=== PATIENT | male | born 1970 | race Caucasian/White ===

== ENCOUNTER → 2025-01-20 12:05 | Outpatient (CLI) | payer OTHER, SELFPAY ==
--- NOTE | 2025-01-20 12:07 | DI.CT.S_ITS ---
PROCEDURE: CT CHEST WO CON INDICATIONS: Chronic cough TECHNIQUE: Noncontrast 5 mm thick sections acquired from the pulmonary apices to the posterior costophrenic angles. 1 mm lung window, 5 mm thick coronal and sagittal and 7 mm axial MIP reformats were then acquired. For radiation dose reduction, the following was used: automated exposure control, adjustment of mA and/or kV according to patient size. COMPARISON: None. FINDINGS: Image quality: Diagnostic. Lower Neck: No enlarged lymph nodes. Thyroid: No thyroid nodules which require sonographic follow up, per consensus guidelines. Axillae: No enlarged lymph nodes. Chest Wall: Unremarkable. Bones: Unremarkable. Lungs and Pleura: No pneumothorax or pleural effusions. Noncalcified 2 millimeters solid nodule in the right lower lobe (series 3, image 301). Benign calcified granuloma there are also present. No bronchial thickening. Heart: Heart size is normal. No pericardial effusion. Thoracic Vessels: The aorta and pulmonary arteries demonstrate normal size. Mediastinum and Erin: No enlarged lymph nodes. Esophagus: No wall thickening. No hiatal hernia. Upper Abdomen: Visualized upper abdomen solid organs and bowel loops appear normal. IMPRESSION: 2 millimeter solid nodule in the right lower lobe. Pulmonary micronodules. Consider 12 month follow-up if at high risk for developing lung cancer, per Fleischner Society guidelines. No findings to explain the patient's chronic cough. No significant airways disease. Dictated by: Reggie Coello M.D. on 01/20/2025 at 13:51 Approved by: Reggie Coello M.D. on 01/20/2025 at 13:54
== END ==
LOC: CT 12:07
PROVIDERS: PCP Family Medicine; Referring Provider Family Medicine; Visit Provider Family Medicine
DX: R05.3 Chronic cough (principal); R93.89 Abnormal findings on diagnostic imaging of other specified body structures; R91.1 Solitary pulmonary nodule
CPT/HCPCS: 71250

== ENCOUNTER → 2025-05-19 07:43 | Outpatient (CLI) | payer OTHER, SELFPAY ==
--- NOTE | 2025-05-19 07:44 | DI.CT.S_ITS ---
PROCEDURE: CT CHEST W CON INDICATIONS: mass, swelling TECHNIQUE: After the administration of intravenous contrast, 5 mm thick sections acquired from the pulmonary apices to the posterior costophrenic angles. 1 mm axial lung, 5 mm thick coronal and sagittal reformats and 7 mm axial MIP were acquired. For radiation dose reduction, the following was used: automated exposure control, adjustment of mA and/or kV according to patient size. COMPARISON: [facility], CT, CT CHEST WO CON, 01/20/2025, 12:09. FINDINGS: Image quality: Diagnostic. Lower Neck: No enlarged lymph nodes. Thyroid: No thyroid nodules which require sonographic follow up, per consensus guidelines. Axillae: No enlarged lymph nodes. Chest Wall: Unremarkable. No evidence of left infraclavicular chest wall abnormality as queried. Bones: Unremarkable. Lungs and Pleura: No pneumothorax or pleural effusions. No consolidation or suspicious nodules. Stable 5 mm solid pulmonary nodule in the left lower lobe (3/208). Heart: Heart size is normal. No pericardial effusion. Thoracic Vessels: The aorta and pulmonary arteries demonstrate normal size. Mediastinum and Erin: No enlarged lymph nodes. Esophagus: No wall thickening. No hiatal hernia. Upper Abdomen: Visualized upper abdomen solid organs and bowel loops appear normal. IMPRESSION: 1. No acute intrathoracic abnormality. 2. No evidence of left infraclavicular chest wall abnormality as queried. Dictated by: Samra Richard M.D. on 05/21/2025 at 12:31 Approved by: Samra Richard M.D. on 05/21/2025 at 12:39
== END ==
LOC: CT 07:44
PROVIDERS: PCP Family Medicine; Referring Provider Family Medicine; Visit Provider Family Medicine
DX: R22.2 Localized swelling, mass and lump, trunk (principal); R91.1 Solitary pulmonary nodule
CPT/HCPCS: 71260; Q9967